=== PATIENT | female | born 1985 | race Two or more races ===

== ENCOUNTER → 2020-07-06 | Outpatient (CLI) | payer BC ==
[~2020-07-06] MED LIST: CETI10CA PO; MULT-658 PO
[2020-07-06 14:04] LABS: MICROSCOPIC NOT IND
[2020-07-06 14:10] LABS: BASOPHILS % (AUTO) 1 % (0-1); EOSINOPHILS % (AUTO) 3 % (1-7); LYMPHOCYTES % (AUTO) 42 % (22-44); MEAN CORPUSCULAR HEMOGLOBIN 32.3 pg (27.0-34.8); MEAN CORPUSCULAR HGB CONC 34.3 g/dL (32.4-35.8); MEAN PLATELET VOLUME 8.6 fL (7.4-10.4); MONOCYTES % (AUTO) 6 % (2-9); NEUTROPHILS % (AUTO) 48 % (42-75); PLATELET COUNT 226 x10^3/uL (130-400); RED BLOOD COUNT 4.54 x10^6/uL (3.82-5.3); RED CELL DISTRIBUTION WIDTH 12.2 % (9.6-15.2)
[2020-07-06 14:13] LABS: CALCIUM 8.5 mg/dL (8.5-10.1); CHLORIDE 108 mmol/L (98-107)
[2020-07-06 14:17] LABS: MD NO
[2020-07-06 14:21] LABS: ALANINE AMINOTRANSFERASE 65 U/L (12-78); ALBUMIN 3.9 g/dL (3.4-5.0); ALKALINE PHOSPHATASE 75 U/L (45-117); ANION GAP 4 mmol/L (5-15); BILIRUBIN,TOTAL 0.4 mg/dL (0.2-1.0); CREATININE 0.69 mg/dL (0.55-1.02); TOTAL PROTEIN 7.5 g/dL (6.4-8.2)
== END | disposition home or self-care (01) ==
LOC: STAR 13:01
PROVIDERS: ATTEND Obstetrics & Gynecology
DX: Z01.818 Encounter for other preprocedural examination (principal)
CPT/HCPCS: 36415; 80053; 81003; 84702; 85025

== ENCOUNTER → 2020-08-05 | Outpatient (CLI) | payer BC | END | disposition home or self-care (01) | LOC: STAR 12:35 | PROVIDERS: ATTEND Obstetrics & Gynecology | DX: Z20.822 Contact with and (suspected) exposure to COVID-19 (principal) | CPT/HCPCS: U0003; U0005 ==

== ENCOUNTER 2020-08-10 12:34 | Day surgery (SDC) | payer BC ==
[~2020-08-10] VITALS: Ht 157.5 cm; Wt 80.0 kg
[~2020-08-10 12:34] MED LIST changes: +CEFAZOLIN 1,000 MG ONE; +DEXAMETHASONE 4 MG/ML, 1ML ONE; +FENTANYL PF 250 MCG/5ML ONE; +GLYCOPYRROLATE 0.2MG/1ML, 5ML ONE; +KETOROLAC 30 MG/1 ML ONE; +MIDAZOLAM 1 MG/ML, 2ML ONE; +NEOSTIGMINE 1 MG/ML, 10ML ONE; +ONDANSETRON 2MG/ML, 2ML ONE; +PROPOFOL 10 MG/ML, 20ML ONE; +ROCURONIUM 10MG/ML,5ML ONE
[2020-08-10 13:15] LABS: HCG UR SG 1.022 (1.003-1.030)
[2020-08-10] MEDS ORDERED: CHLORHEXIDINE 15 ML UDC ONE (13:17)
[2020-08-10] MEDS ORDERED: BUPIVACAINE/PF 0.25% ONE (14:05)
[2020-08-10] MEDS ORDERED: HALOPERIDOL 5 MG/ML IV PRN (14:30)
[2020-08-10] MEDS ORDERED: FENTANYL PF 100 MCG/2ML IV PRN (14:30)
[2020-08-10] MEDS ORDERED: morphine SULFATE 10 MG/ML, 1ML IVPush PRN (14:30)
[2020-08-10] MEDS ORDERED: PROMETHAZINE 25 MG/ML, 1ML IVPush PRN (14:30)
[2020-08-10] MEDS ORDERED: OXYcodone 5 MG/5 ML ORAL.SOL UDC PO PRN (14:30)
[2020-08-10] MEDS ORDERED: hydrALAzine 20 MG/ML, 1ML IV PRN (14:30)
[2020-08-10] MEDS ORDERED: LABETALOL 5MG/ML, 20ML IV PRN (14:30)
[2020-08-10] MEDS ORDERED: MEPERIDINE/PF 25MG/0.5ML IVPush PRN (14:30)
[2020-08-10] MEDS ORDERED: HYDROmorphone 1 MG/ML, 1ML INJ IVPush PRN (14:30)
[2020-08-10] MEDS ORDERED: ACETAMINOPHEN 325 MG TABLET PO PRN (14:30)
[2020-08-10] MEDS ORDERED: BUPIVACAINE/PF-EPI 0.25% 1:200K INFIL ONE (14:33)
[2020-08-10] MEDS ORDERED: OXYcodone 5 MG/5 ML ORAL.SOL UDC ONE (15:22)
[2020-08-10] MEDS ORDERED: SUGAMMADEX 200 MG/2 ML IVPush ONE (17:12)
== END 2020-08-10 17:15 | disposition home or self-care (01) ==
LOC: OUT 12:34
PROVIDERS: ATTEND Obstetrics & Gynecology
DX: Z30.2 Encounter for sterilization (principal); N83.8 Other noninflammatory disorders of ovary, fallopian tube and broad ligament; N83.01 Follicular cyst of right ovary; E55.9 Vitamin D deficiency, unspecified; Z79.899 Other long term (current) drug therapy
CPT/HCPCS: 36415; 58670; 81025; 86850; 86900; 88302; J0690; J1100; J1885; J2250; J2405; J2704; J2710; J3010